=== PATIENT | female | born 1990 | race Caucasian/White ===

== ENCOUNTER 2020-02-11 09:32 | Outpatient (RCR) | payer BC, SELFPAY ==
[2020-02-11 10:19] VITALS: BP 112/76; PULSE 76
== END 2020-02-15 09:52 | disposition home or self-care (01) ==
LOC: ANHOBOP 09:32
PROVIDERS: Family Provider Obstetrics & Gynecology; PCP Obstetrics & Gynecology; Visit Provider Obstetrics & Gynecology
DX: O26.893 Other specified pregnancy related conditions, third trimester (principal); Z3A.39 39 weeks gestation of pregnancy
CPT/HCPCS: 59025

== ENCOUNTER 2020-02-12 19:04 | Inpatient (IN) | payer BC, SELFPAY ==
[2020-02-12] VITALS (10 sets, daily range): BP systolic 102–120; BP diastolic 59–71; PULSE 79–94; TEMP 36.8; BMI 33.3
[2020-02-12 19:40] LABS: Basophils Percent Auto 0.1 % (0.2-1.2); Eosinophils Percent Auto 0.2 % (0-4.4); Hematocrit 36.6 % (37.0-47.0); Hemoglobin 13.1 g/dL (12.0-15.0); Immature Granulocyte Absolute 0.03 K/mm3 (0.00-0.031); Immature Granulocyte Percent A 0.4 % (0-0.5); Lymphocytes Absolute Auto 1.87 K/mm3 (0.9-3.2); Lymphocytes Percent Auto 22.3 % (18.3-44.2); Mean Corpuscular HGB Conc 35.8 g/dl (32-36); Mean Corpuscular Hemoglobin 32.6 pg (26-34); Mean Platelet Volume 9.7 fl (7.4-10.4); Monocytes Absolute Auto 0.5 K/mm3 (0.1-0.6); Monocytes Percent Auto 6.1 % (2.6-8.5); Neutrophils Absolute Auto 5.9 K/mm3 (1.3-6.7); Neutrophils Percent Auto 70.9 % (45.5-73.1); Platelet Count Result 203 k/mm3 (150-375); Red Blood Count 4.02 M/mm3 (4.2-5.4); Red Cell Distribution Width 12.8 % (11.5-14.5); White Blood Count 8.4 K/mm3 (4.5-10.0)
--- NOTE | 2020-02-12 19:48 | LDADM ---
This patient, Trang Sutherland, was admitted to Labor/Delivery/Recovery 107 on 02/12/20 at 19:04. Plans for labor, pain management and were discussed with patient. Patient/family oriented to hospital policies and general routines including ID bracelet, bed and alarms, visiting hours, pain management, procedures, bathroom and other care routines, personal items, smoking policy, room service/diet and guest tray routines, infant security routines, and visiting hours. Patient/Family are encouraged to report perceived risks to care and to ask questions if they do not understand what they are told or what they should do. See OBIX for further documentation.
[2020-02-12] MEDS: DINOPROSTONE 10 MG VAG INSERT VAGINAL (20:00)
[2020-02-12] MEDS: LACTATED RINGERS 1,000 ML 125 ML IV CONT (21:34)
[2020-02-12] MEDS: CLINDAMYCIN 900 MG/NS 50 ML 900 MG/50 ML PIGGYBACK 50 MG IVPB (21:35)
[2020-02-13] VITALS (61 sets, daily range): BP systolic 87–160; BP diastolic 17–94; PULSE 61–115; RESP 18; TEMP 36.2–37.6; O2SAT 99–100
--- NOTE | 2020-02-13 02:15 | WPDANESEPP ---
Anes - Eval Pre Procedure Procedure: labor epidural Date/Time: 02/13/20 02:15 Surgeon: heaven Pre Op Diagnosis: IOL Patient Data Age: 29 Gender: F Height: 1.63 m Weight: 88 kg Last Vital Signs Temp 36.8 C 02/12/20 20:00 Pulse 79 02/12/20 22:01 BP 102/63 02/12/20 22:01 Allergies Allergy/AdvReac Type Severity Reaction Status Date / Time Penicillins Allergy Mild Rash Verified 02/06/20 15:38 amoxicillin Allergy Rash Verified 02/06/20 15:38 Home Medications Medication Instructions Recorded Confirmed Type PNV cmb#95-ferrous fumarate-FA 1 tablet PO DAILY 02/06/20 02/06/20 History [] folic acid 4 mg PO DAILY 02/06/20 02/06/20 History Laboratory Tests 02/12/20 02/12/20 02/12/20 19:32 19:32 19:32 WBC 8.4 K/mm3 K/mm3 (4.5-10.0) RBC 4.02 M/mm3 L M/mm3 (4.2-5.4) Hgb 13.1 g/dL g/dL (12.0-15.0) Hct 36.6 % L % (37.0-47.0) MCV 91.0 fl fl (80-100) MCH 32.6 pg pg (26-34) MCHC 35.8 g/dl g/dl (32-36) RDW 12.8 % % (11.5-14.5) Plt Count 203 k/mm3 k/mm3 (150-375) MPV 9.7 fl fl (7.4-10.4) Immature Gran % (Auto) 0.4 % % (0-0.5) Neut % (Auto) 70.9 % % (45.5-73.1) Lymph % (Auto) 22.3 % % (18.3-44.2) [place] % (Auto) 6.1 % % (2.6-8.5) Eos % (Auto) 0.2 % % (0-4.4) Baso % (Auto) 0.1 % L % (0.2-1.2) Lymph # (Auto) 1.87 K/mm3 K/mm3 (0.9-3.2) [place] # (Auto) 0.5 K/mm3 K/mm3 (0.1-0.6) Eos # (Auto) 0.0 K/mm3 K/mm3 (0-0.3) Baso # (Auto) 0.0 K/mm3 K/mm3 (0.0-0.1) Abs Immat Gran (auto) 0.03 K/mm3 K/mm3 (0.00-0.031) Absolute Neuts (auto) 5.9 K/mm3 K/mm3 (1.3-6.7) Absolute Nucleated RBC 0.0 K/mm3 K/mm3 (0.0-0.012) Nucleated RBC % 0.0 % % (0.0-0.2) RPR Pending Blood Type B Positive Antibody Screen Negative Patient hx anesthesia problems: none Family hx anesthesia problems: none [facility] Family History Family History (Updated 02/06/20 @ 15:43 by Kristin Aragon RN) Father Diabetes mellitus Stented coronary artery Mother Colon cancer Congestive heart failure Social History Social History Smoking status: Never smoker Substance use: never Spiritual care concerns: No Exam Day of Procedure 02/13/20 02:15
[2020-02-13] MEDS: CLINDAMYCIN 900 MG/NS 50 ML 900 MG/50 ML PIGGYBACK 50 MG IVPB ×2 (05:05→13:40)
[2020-02-13] MEDS: OXYTOCIN 30 UNITS/NS 500 ML 30 UNITS/500 ML BAG IV CONT (05:30)
[2020-02-13] MEDS: LACTATED RINGERS 1,000 ML 125 ML IV CONT ×2 (10:50→13:02)
--- NOTE | 2020-02-13 16:21 | WPDHPUPDATE1 ---
History and Physical Update Update Date/Time: 02/13/20 16:21 History and Physical has been reviewed, including an updated exam of the patient. There are NO changes in the patient's condition. Risks, benefits, and alternatives have been discussed and questions answered. Patient agrees to proceed with procedure.
--- NOTE | 2020-02-13 16:21 | WPDOBADMIT ---
Obstetrics - Admit Note Admission Note: record reviewed. No pertinent additions to the history and/or any subsequent changes in the physical findings that are not consistent with the expected course of the were found. Additions to the history and/or subsequent changes in the physical findings follow. None.
--- NOTE | 2020-02-13 16:21 | PM.OBPRVD ---
OB - Delivery Note Procedure Route of delivery: Episiotomy description: None Laceration description: None Specimen: No Estimated blood loss (mL): 300 Anesthesia type: Epidural Disposition: floor Narrative: Patient prepped and draped in usual manner this procedure. Maternal expulsive efforts readily delivered vertex which was followed by the rest of the baby without difficulty. Placenta delivered spontaneously and was intact. Cervix vagina vulva were inspected no lacerations or tears. Uterus well contracted and no significant bleeding. This point procedure was considered terminated. Baby Weeks of gestation at delivery: 39 Infant gender: Female Weight (pounds): 7 Weight (ounces): 11 score one minute: 8 score five minutes: 9
[2020-02-13] MEDS: OXYTOCIN 30 UNITS/NS 500 ML 30 UNITS/500 ML BAG 125 UNITS IV CONT (16:45)
--- NOTE | 2020-02-13 19:25 | PC.NURSE ---
To social service...pt and significant other have pleaded guilty to of 2 wk old baby and probation/time served. Have other children and seem as a functioning couple with plans and dreams.
[2020-02-13] MEDS: IBUPROFEN 600 MG TABLET PO (19:45)
[2020-02-13] MEDS: BENZOCAINE 20% AER SPR (*SP) 56 GM CAN 1 SPRAY TOPICAL (19:52)
--- NOTE | 2020-02-13 20:25 | OBPPTRN ---
February 13, 2020 at 1936 Patient transferred to post room #286 via wheelchair. Support person present. Oriented to unit, room, information board, rooming in, admission packet and security measures. Patient verbalizes understanding. Patient OOB and to the bathroom and tolerated activity very well.
[2020-02-14 04:29] LABS: Hematocrit 35.1 % (37.0-47.0); Hemoglobin 12.3 g/dL (12.0-15.0)
[2020-02-14 07:38] VITALS: BP 92/63; PULSE 70; RESP 18; TEMP 36.3
[2020-02-14] MEDS: MULTIVIT/MIN/PREN/FOL AC/IRON TABLET 1 TAB PO (09:37)
[2020-02-14] MEDS: FOLIC ACID 1 MG TABLET 4 MG PO (09:37)
[2020-02-14] MEDS: DOCUSATE SODIUM 100 MG CAPSULE PO (09:37)
[2020-02-14] MEDS: IBUPROFEN 600 MG TABLET PO (09:38)
--- NOTE | 2020-02-14 12:37 | PM.OBDSVD ---
OB - DS: Summary OB Procedures : None OB Procedures Intrapartum: Spontaneous Vag Delivery OB Procedures: : None Time Spent with Patient Time attestation: Total time spent providing and/or coordinating discharge services: DS: Data Data Completed and Pending Labs on day of discharge: Labs from last 24 hours 02/14/20 04:17 Hgb 12.3 Hct 35.1 L Discharge Plan Discharge Discharging Clinician: Galileo Nelson Patient Disposition: Home, Self-Care Activity: as tolerated Diet: as tolerated Patient Instructions: Antibiotic Form Stand Alone Forms: General Discharge Information Follow-up/Referrals: Galileo Nelson MD [Physician] - 3 Weeks Discharge Medications: Continued folic acid 1 mg Tablet 4 mg PO DAILY RF: 0 PNV cmb#95-ferrous fumarate-FA [] 28 mg iron- 800 mcg Tablet 1 tablet PO DAILY RF: 0 Date of admission: 02/12/20 19:04 Primary Care Provider: EriMely Admitting Provider: Galileo Nelson Attending physician on admission: Galileo Nelson
--- NOTE | 2020-02-14 15:01 | PCCCNOTE ---
Care Coordination Note Met with pt. who reports she lives at home with SANDY Gibbs. Pt. has two other children at home, boy and girl. Pt. reports she has had one child who . Pt. does report both her and Sai were charged and held responsible for child's . Pt. reports currently she does not have any DCFS involvement. Pt. reports she has custody of her two other children who are currently at home with Sai. Pt. reports she has supports including her family. Has everything including a crib, clothing, car seat, diapers, and formula. Pt. is hopeful to breastfeed. Pt. was provided a list of resources including counseling and WIC. Pt. states she is thinking about applying for WIC at discharge. Pt. denies any further needs.
--- NOTE | 2020-02-14 16:55 | WPDANLDPN2 ---
Anes-Prog Note L&D Date/Time: 02/14/20 16:55 Comfortable throughout: labor and delivery Neuraxial method: epidural Epidural/Spinal procedure site: clean & non-tender Neuro status: Neuro function grossly intact. Cardiovascular status: normal Respiratory status: normal Airway patency: baseline Mental status: baseline Post-Op hydration status: normal Vital Signs: Last Vital Signs Temp 97.4 F L 02/14/20 07:38 Pulse 70 02/14/20 07:38 Resp 18 02/14/20 07:38 BP 92/63 L 02/14/20 07:38 Pulse Ox 100 02/13/20 20:05 Post-procedural complaints: none Patient feedback: Patient satisfied with anesthetic care.
[2020-02-14 18:35] VITALS: BP 97/64; PULSE 72; RESP 12; TEMP 36.3
[2020-02-15 07:07] LABS: Rapid Plasma Reagin Non-Reactive (NonReactive)
[2020-02-15 08:20] VITALS: BP 104/66; PULSE 63; RESP 18; TEMP 37.3; O2SAT 100
[2020-02-15] MEDS: MULTIVIT/MIN/PREN/FOL AC/IRON TABLET 1 TAB PO (09:08)
--- NOTE | 2020-02-15 09:15 | PC.NURSE ---
Patient viewed the discharge video Mother & Baby Care, The First Two Weeks . Patient was given the opportunity and encouraged to ask questions. Patient verbalized understanding of information shared and has been given the mother/baby guide for home reference.
--- NOTE | 2020-02-15 10:45 | PC.NURSE ---
Consulted with patient, mother reports infant is nursing with the nipple shield, is sleepy and not vigorously nursing. Mother will pump and supplement each feeding. Mother used nipple shield with previous children due to inverted nipple. Mother reports she has been pumping and bottle feeding the last several feedings due to sore nipples and pain with feeding. Discussed nipple shield precautions and possible complications. Instructions given on application and cleaning of shield. Patient able to return demonstration on proper application of shield. Discussed the need for regular pumping pumping if infant continues to nurse with the shield. Once milk supply is established and infant is able to gain weight and supplementation is no longer needed mother may discontinue pumping. Patient verbalizes understanding. Nipple care reviewed. Mother is feeding as required and states she may continue to pump and bottle feed. Infant is currently meeting outcomes for weight, output, jaundice and feeding frequencies. Mother states she feels confident to continue current feeding plan at home. Mother states she will call for assist if she returns infant to breast for feedings and/or if she has discomfort with feedings. Reviewed transition to breast milk, signs of adequate intake, and engorgement/relief. Instructed to call ICP if intake/output less than required. Reviewed regular medications mother is taking. Information provided per Veronica. Reviewed community resources on the [facility] website and in the Mom/Baby guide. Information on outpatient services provided. Mother has no further questions at this time.
[2020-02-15] MEDS: FOLIC ACID 1 MG TABLET 4 MG PO (10:55)
[2020-02-17 11:32] VITALS: BP 108/61; PULSE 79; RESP 20; TEMP 36.9; O2SAT 100
--- NOTE | 2020-02-26 08:20 | PM.OBDSVD ---
DS: Admitting Diagnosis Admitting Diagnosis Admitting Diagnosis: Encounter for supervision of normal , unspecified, third trimester OB - DS: Summary OB Procedures : None OB Procedures Intrapartum: Spontaneous Vag Delivery OB Procedures: : None Time Spent with Patient Time attestation: Total time spent providing and/or coordinating discharge services: Discharge Plan Discharge Discharging Clinician: Galileo Nelson Patient Disposition: Home, Self-Care Activity: as tolerated Diet: as tolerated Discharge Instructions: Education: Mom and Baby and preeclampsia handout Guide Given to: Mother Follow-Up: Call your delivering provider's office for an appointment to be seen in: 3 weeks Mom and baby should come to the [facility] for the follow-up appointment. Appointment Date/Time: February 17, 2020 at 11:00 am What to expect at your follow-up visit: Physical Assessment Call [phone] if you are unable to keep your appointment time. BREAST CARE: 1. Wear a snug supportive bra. 2. For engorgement discomfort: Breast Feeding: A. Apply warm moist washcloths B. Express milk as needed to relieve engorgement C. Wear loose clothing 3. For sore nipples: A. Identify correct latch-on B. Apply warm moist washcloths before and after nursing C. Air dry nipples after nursing D. May apply Lansinoh cream to nipples EPISIOTOMY/PERINEAL CARE: 1. Until bleeding stops, use your salvador bottle after urinating 2. Change your pad frequently throughout the day 3. You may take sitz baths several times a day (fill your bathtub with warm water and soak for 20 minutes.) Do NOT bathe in the water 4. No tub baths until seen by your physician - You may shower ACTIVITY: 1. Rest as much as possible. 2. Do not exercise or lift anything heavier than your baby (such as laundry or other children.) 3. Avoid stairs or driving as much as possible. 4. Do not put anything into the vagina. No douching, tampons, or sexual activity until seen by physician. NOTIFY PHYSICIAN IF YOU HAVE ANY QUESTIONS OR IF ANY OF THE FOLLOWING SYMPTOMS OCCUR: 1. If your perineum becomes red, swollen, or more painful than what you have experienced in the hospital. 2. If your vaginal bleeding becomes foul smelling. 3. If your vaginal bleeding becomes more heavy than a period or if your bleeding changes from pink to bright red. However, you may pass an occasional walnut-sized clot once or twice for the first week . 4. If you experience a sharp, shooting pain in you calves. 5. If you discover a hard, reddened area on your breast or if you experience flu-like symptoms. DIET: 1. Eat regular, well-balanced meals. 2. Drink plenty of fluids daily. If , drink to thirst. Stand Alone Forms: General Discharge Information Follow-up/Referrals: Galileo Nelson MD [Physician] - 3 Weeks Discharge Medications: Continued folic acid 1 mg Tablet 4 mg PO DAILY RF: 0 PNV cmb#95-ferrous fumarate-FA [] 28 mg iron- 800 mcg Tablet 1 tablet PO DAILY RF: 0 Date of admission: 02/12/20 19:04 Primary Care Provider: RebeccaMely Admitting Provider: Galileo Nelson Discharge Date/Time: 02/15/20 13:21 Attending physician on admission: Galileo Nelson
== END 2020-02-15 13:21 | disposition home or self-care (01) | DRG 560 ==
LOC: ANHLDR 19:09 → ANHOB2 02-13 20:09
PROVIDERS: Admitting Provider Obstetrics & Gynecology; PCP Physician Assistant; Visit Provider Obstetrics & Gynecology
DX: O99.824 Streptococcus B carrier state complicating childbirth (principal); Z37.0 Single live birth; Z3A.39 39 weeks gestation of pregnancy
CPT/HCPCS: 36415; 85014; 85018; 85025; 86592; 86850; 86900; 86901; A9270; J2590; J2795; J7120

== ENCOUNTER 2022-04-01 19:59 | Emergency (ER) | payer BC, SELFPAY ==
--- NOTE | ~2022-04-01 | CT_ITS ---
EXAMINATION: CT abdomen pelvis w con DATE: 04/01/2022 21:51 INDICATION: Lump above umbilicus after heavy lifting. Nausea and vomiting. TECHNIQUE: Computed tomography (CT) of the abdomen and pelvis was performed with 100 CC Omnipaque 350 intravenous contrast. Automated exposure control and iterative reconstruction technique were employe d. Exam dose: 215.23 mGy-cm total exam DLP. COMPARISON: None. FINDINGS: The lung bases are clear. Normal heart size. No pericardial or pleural effusion. The liver, gallbladder, bile ducts, pancreas, pancreatic duct are unremarkable. Normal stomach size. Splenic calcified granulomas. Normal morphology of the adrenal glands. There is moderate scarring and volume loss of the upper and lower poles of the left kidney, likely du e to chronic pyelonephritis. No urinary tract calculus or hydroureteronephrosis. Urinary bladder is unremarkable. There is an IUD within the uterus. Normal caliber of the abdominal aorta. No intraperitoneal or retroperitoneal or pelvic mass lesion or adenopathy or ascites. There is a prominent amount of fecal material within the colon. No bowel obstruction. No umbilical or ventral abdominal wall hernia is detected IMPRESSION: No umbilical or ventral abdominal wall hernia Chronic left pyelonephritis IUD within uterus Reviewed, dictated and finalized at [facility]. Reviewed, dictated and finalized at [facility].
[2022-04-01 20:01] VITALS: BP 155/85; PULSE 107; RESP 16; TEMP 36.8; O2SAT 100
--- NOTE | 2022-04-01 20:31 | ED.GENADULT ---
HPI - General Adult General Chief complaint: Unspecified Stated complaint: umbilical hernia Time Seen by Provider: 04/01/22 20:24 History of Present Illness HPI narrative: Patient 31-year-old female presents emergency department with chief complaint of abdominal pain. Patient reports that she was turning and felt a pop in her abdominal wall and noticed a small lump. Patient states that she has history of her rectus muscles being stretched from a previous and reports that she has a tender area. The patient states she is concerned that she has an umbilical hernia. The patient states that she also noticed that she has been bruising whenever she used a foam roller on her leg and is concerned that her platelet count may be low. Patient also reports that she was seen at [facility] earlier this week after she had had some suicidal ideation was In the hospital for several days and since discharge has had several episodes of panic attacks. The patient currently denies suicidal or homicidal ideation. Related Data Home Medications Medication Instructions Recorded Confirmed folic acid 1 mg tablet 4 mg PO DAILY 02/06/20 02/06/20 vit no.95-ferrous 1 tablet PO DAILY 02/06/20 02/06/20 fumarate 28 mg-folic acid 800 mcg tablet () Allergies Allergy/AdvReac Type Severity Reaction Status Date / Time Penicillins Allergy Mild Rash Verified 02/06/20 15:38 amoxicillin Allergy Rash Verified 02/06/20 15:38 Review of Systems Review of Systems: A 10 system review of systems was completed on the patient and is negative except for what is stated in the HPI. Nursing and ancillary documentation was reviewed. [facility] Family History Family History Father Diabetes mellitus Stented coronary artery Mother Colon cancer Congestive heart failure Social History Social History Smoking status: Never smoker Substance use: never Spiritual care concerns: No Exam Narrative: GENERAL: Well-appearing, well-nourished, and in no acute distress. HEAD: Normocephalic, atraumatic. EYES: PERRLA and EOMI. ENT: Nares clear, no rhinorrhea or epistaxis. Mucous membranes moist. NECK: Supple. CHEST: Clear to auscultation. No respiratory distress. HEART: Regular rate and rhythm. No murmur heard. Normal peripheral pulses. ABDOMEN: Soft, tenderness in the periumbilical region, nondistended, normal active bowel sounds. EXTREMITIES: Normal range of motion. No edema. SKIN: Warm, dry, no rash. NEURO: No focal deficits. Alert and oriented x3. PSYCH: Normal mood and affect. Course Course Emergency Course: CT scan of the abdomen pelvis showed no evidence of acute intra-abdominal pathology no evidence of incarcerated hernia. Patient is medically cleared for psychiatric evaluation referral and admission and transport. Vital Signs Vital signs: Vital Signs Temperature 36.8 C 04/01/22 20:01 Pulse Rate 107 H 04/01/22 20:01 Respiratory Rate 16 04/01/22 20:01 Blood Pressure 155/85 H 04/01/22 20:01 Pulse Oximetry 100 04/01/22 20:01 Oxygen Delivery Room Air 04/01/22 20:01 Temperature 36.8 C 04/01/22 20:01 Pulse Rate 107 H 04/01/22 20:01 Respiratory Rate 16 04/01/22 20:01 Blood Pressure 155/85 H 04/01/22 20:01 Pulse Oximetry 100 04/01/22 20:01 Oxygen Delivery Room Air 04/01/22 20:01 Medical Decision Making Vital Signs Vital Signs: Vital Signs Temperature 36.8 C 04/01/22 20:01 Pulse Rate 107 H 04/01/22 20:01 Respiratory Rate 16 04/01/22 20:01 Blood Pressure 155/85 H 04/01/22 20:01 Pulse Oximetry 100 04/01/22 20:01 Oxygen Delivery Room Air 04/01/22 20:01 Temperature 36.8 C 04/01/22 20:01 Pulse Rate 107 H 04/01/22 20:01 Respiratory Rate 16 04/01/22 20:01 Blood Pressure 155/85 H 04/01/22 20:01 Pulse Oximetry 100 04/01/22 20:01 O
[2022-04-01 20:59] LABS: Basophils Percent Auto 0.6 % (0.2-1.2); Eosinophils Absolute Auto 0.1 K/mm3 (0-0.3); Eosinophils Percent Auto 1.9 % (0-4.4); Hematocrit 34.7 % (37.0-47.0); Hemoglobin 11.7 g/dL (12.0-15.0); Immature Granulocyte Absolute 0.01 K/mm3 (0.00-0.031); Immature Granulocyte Percent A 0.2 % (0-0.5); Lymphocytes Absolute Auto 2.45 K/mm3 (0.9-3.2); Lymphocytes Percent Auto 38.7 % (18.3-44.2); Mean Corpuscular HGB Conc 33.7 g/dl (32-36); Mean Corpuscular Hemoglobin 31.2 pg (26-34); Mean Corpuscular Volume 92.5 fl (80-100); Mean Platelet Volume 8.8 fl (7.4-10.4); Monocytes Absolute Auto 0.5 K/mm3 (0.1-0.6); Monocytes Percent Auto 7.6 % (2.6-8.5); Neutrophils Absolute Auto 3.2 K/mm3 (1.3-6.7); Platelet Count Result 258 k/mm3 (150-375); Red Blood Count 3.75 M/mm3 (4.2-5.4); Red Cell Distribution Width 12.9 % (11.5-14.5); White Blood Count 6.3 K/mm3 (4.5-10.0)
[2022-04-01 21:09] LABS: Acetaminophen < 10 ug/mL (10-30); Ethanol < 10 mg/dL (<10); Salicylate < 1.0 mg/dL (2-20)
[2022-04-01 21:10] LABS: Alanine Aminotransferase 17 U/L (6-35); Albumin Level 3.8 g/dL (3.5-5.1); Alkaline Phosphatase 38 U/L (38-126); Anion Gap 9 mmol/L (8-16); Aspartate Amino Transferase 25 U/L (14-36); Bilirubin,Total 0.3 mg/dL (0.2-1.3); Blood Urea Nitrogen 18 mg/dL (7-17); Calcium 8.1 mg/dL (8.4-10.2); Carbon Dioxide 25 mmol/L (22-30); Chloride 102 mmol/L (98-107); Estimated CRCL calculation 75 ml/min; Estimated Glomerular Filt Rate > 60; Glucose 83 mg/dL (65-110); Lipase 84 U/L (23-300); Potassium 3.7 mmol/L (3.4-5.0); Sodium 136 mmol/L (137-145)
[2022-04-01 21:12] LABS: Lactic Acid Reflex 0.8 mmol/L (0.7-2.0)
[2022-04-01 21:22] LABS: Appearance Urine Clear (Clear); Bilirubin Urine Negative (Negative); Blood Urine Negative (Negative); Color Urine Yellow (Yellow); Glucose Urine UA Negative (Negative); Ketones Urine Negative (Negative); Leukocyte Esterase Ur Negative LEU/UL (Negative); Nitrate Urine Negative (Negative); Protein Urine Negative (Negative); Specific Grav Ur 1.025 (1.001-1.035); pH Urine 6.5 (5.0-9.0)
[2022-04-01 21:28] LABS: Mucus Urine Rare /lpf; Squamous Epithelial Cell Urine Occasional /hpf (Few); WBC Urine 0-3 /hpf
[2022-04-01 21:34] LABS: Add Urine Microscopic? NO
[2022-04-01] MEDS: LORazepam INJ (*CRX) 2 MG/ML VIAL 1 MG IV PUSH (21:38)
--- NOTE | 2022-04-01 21:38 | PC.NURSE ---
Pt is in ED rm 15, Manual gave in the room due to safety precautions for si.
[2022-04-01 21:40] LABS: Amphetamine Screen Urine Negative (Negative); Barbiturate Screen Urine Negative (Negative); Benzodiazepines Screen Urine Negative (Negative); Cannabinoid Screen Urine Positive (Negative); Cocaine Screen Urine Negative (Negative); Methadone Screen Urine Negative (Negative); Opiate Screen Urine Negative (Negative); Phencyclidine Screen Urine Negative (Negative)
--- NOTE | 2022-04-01 22:51 | PC.NURSE ---
2243 - Contacted [facility] for crisis evaluated. Spoke with Dinah. Pt meets criteria for evaluation, ETA approx 2 hours from call.
--- NOTE | 2022-04-01 23:37 | PC.NURSE ---
Transferred care to DANGELO Mandujano
[2022-04-01 23:42] LABS: SARS-CoV-2 RNA PCR Negative
--- NOTE | 2022-04-02 02:05 | PC.NURSE ---
Pt had requested medications for anxiety, RN spoke with MD and new Rx sent to pharmacy. Pt also requesting labs, Registration set pt up to access [facility] portal with all labs available.
[2022-04-02 02:06] VITALS: PULSE 77; RESP 18; O2SAT 100
== END 2022-04-02 02:09 | disposition home or self-care (01) ==
PROVIDERS: Emergency Provider Emergency Medicine
DX: R10.84 Generalized abdominal pain (principal); Z20.822 Contact with and (suspected) exposure to COVID-19; F41.9 Anxiety disorder, unspecified; F32.A Depression, unspecified; R45.851 Suicidal ideations; Z97.5 Presence of (intrauterine) contraceptive device; N11.9 Chronic tubulo-interstitial nephritis, unspecified
CPT/HCPCS: 36415; 74177; 80053; 80307; 81003; 81025; 83605; 83690; 85025; 96374; 99284; C9803; J2060; Q9967; U0003; U0005

== ENCOUNTER 2024-11-08 19:54 | Emergency (ER) | payer BC, SELFPAY ==
--- NOTE | ~2024-11-08 | CT_ITS ---
CT facial bones w con Ordering provider: Joss Herzog PA-C History: . R sinus pain, fevers . Comparison: None. Technique: Thin slice axial CT of the facial bones was performed following the administration of intr avenous contrast. Coronal and sagittal reformatted images were also obtained. The dose-length produc t was 299.77 mGy-cm. FINDINGS: PARANASAL SINUSES: Trace mucoperiosteal thickening within the right maxillary sinus. Remaining parana vilma sinuses are unremarkable. BONES: No facial fracture including no nasal bone fracture. The nasal septum is deviated to the patie nt's left, with a prominent nasal spur. ORBITS AND SUPERFICIAL SOFT TISSUES: The optic globes and orbits are symmetric. The superficial soft tissues are unremarkable, without a rim-enhancing fluid collection. VISUALIZED MASTOIDS: Well aerated. LIMITED VISUALIZED BRAIN PARENCHYMA: Unremarkable. IMPRESSION: Trace mucoperiosteal thickening within the right maxillary sinus. Nasal septum deviation to the patient's left with a prominent nasal spur. No rim-enhancing fluid collection. Reviewed, dictated and finalized at location A.
[2024-11-08 19:56] VITALS: BP 122/63; PULSE 86; RESP 16; TEMP 36.8; O2SAT 98
--- OUTSIDE RECORDS SUMMARY | 2024-11-08 19:56 | XMS_ITS | Clinical Summary ---
Author Organization [facility] Address [address] [place] [id number] Care Team Providers Care Mattress Stripper Name Role Phone Clari Gandhi DIRECTOR OF SPECIAL EDUCATION-C Primary Care Provider Social History Tobacco Use Types Packs/Day Years Used Date Smoking Tobacco: Never Assessed Comments Unknown Sex and Gender Information Value Date Recorded Sex Assigned at Not on file Legal Sex Female 7:59 PM CDT Gender Identity Not on file Sexual Orientation Not on file Plan of Treatment Health Maintenance Due Date Last Done Comments Cervical Cancer Screening Pa p Smear (Age 30 to 64) Every 3 Years 1988 Annual Physical 10/23/1991 Hepatitis C 2006 DTaP, Tdap and Td Vaccines ( 1 - Tdap) 10/23/2007 Hepatitis B Vaccines (1 of 3 - 19+ 3-dose series) 10/23/2007 Cervical Cancer Screening Pa p with HPV Testing (Age 30 to 64) Every 5 Years 2018 Cervical Cancer Screening with HPV 2018 COVID-19 Vaccine (2023-2 5 season) 2024 HPV Vaccines Aged Out No longer eligi ble based on patient's age to complete this topic Meningococcal B Vaccine Aged Out No l onger eligible based on patient's age to complete this topic Meningococcal Vaccine Aged Out No gian sandra eligible based on patient's age to complete this topic Pneumococcal Vaccine: Pediat rics (0 to 5 Years) and At-Risk Patients (6 to 64 Years) Aged Out No longer eligible b ased on patient's age to complete this topic RSV Immunizations Under 20 Months Aged Out No longer eligible based on patient's age to complete this topic Care Teams Mattress Stripper Relationship Specialty Start Date End Date Clari Gandhi NP-C [address] [place] [id number] PCP - General 10/05/15
--- OUTSIDE RECORDS SUMMARY | 2024-11-08 19:56 | XMS_ITS | Clinical Summary ---
Author Organization [facility] Address [address] [place] [address] Care Team Providers Care Wool Sorter Name Role Phone Bello Raines MD Primary Care Provider [phone] Source Comments [facility],non-owned Affiliates and Associated Physician Practices is amultiple site organization consisting of ambulatory clinics and hospital sitesin [place], [place], [place] and [place]. This disclosure is being madepursuant to the Care Everywhere program and may not contain all information available regarding this patient. Last updated 18.[facility] Allergies Active Allergy Reactions Criticality Noted Date Comments Penicillins Rash Medium 05/21/2017 Medications * Be aware that medications may not be up to date on this document. Alwaysverify current medications with the patient. Medication Sig Dispensed Refills Start Date End Date Status Vit-Fe Fumarate-FA ( VITAMINS) 28-0.8 MG TABS Take 1 tablet by mouth once daily 100 tablet 4 05/21/2017 Active acetaminophen (TYLENOL) 325 MG tablet Take 650 mg by mouth every 4 hours as needed for Fever or Pain Maximum allowable Acetaminophen amount = 4 Grams (4000 mg) / 24 hours. Active docusate sodium (COLACE) 100 MG capsule Take 1 capsule by mouth 2 times daily as needed for Constipation 60 capsule 2 01/06/2018 Active ferrous sulfate 325 (65 FE) MG tablet Take 1 tablet by mouth daily with breakfast 30 tablet 2 01/06/2018 Active Active Problems Patient Care Coordination No te Formatting of this note migh t be different from the original. 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 Encounter for ultrasound 07/01/2017 Overview (09/02/2017): 1st look on 06/26/2017 Result: 1:6,300 for DS and 1:10,000 for Trisomy 18 2nd blood draw ideal dates: 07/25/17-08/08/17 Letter sent 07/01/2017 Final result: 1:10,000 for DS and 1:10,000 for Trisomy 18, Not Increased for ONTD LGSIL on Pap smear of cervix 06/13/2017 Overview (06/26/2017): 05/2017 pap with LGSIL 06/26/17--colpo done and changes visibility c/w mild changes Recommended f/u colpo at 6 wks Retained intrauterine device (IUD) during pregna ncy 05/21/2017 Overview (12/17/2017): Family history of congenital heart disorder in [place] MTHFR mutation Resolved Problems Problem Noted Date Diagnosed Date Resolved Date Pelvic pain affecting 10/08/2017 12/17/2017 Overview (10/08/2017): Pubic symphysis pain Subluxation of symphysis pub is during , antepartum 10/08/2017 12/17/2017 Overview (10/08/2017): Physical therapy Support belt information provided abnormality affecting management of mother 10/08/2017 12/17/2017 Overview (12/10/2017): Pyelectasis 5mm at 26wk, repeat ultrasound on 11/12> resolved Supervision of high-risk pre gnancy of young multigravida 05/21/2017 09/30/2019 Overview (12/10/2017): Datinwk +/I/-/-, NR CF neg Sequential screen Call Rafael for delivery Nausea/vomiting in 05/21/2017 12/10/2017 Overview (07/16/2017): Tried a limited course of B6 and doxylamine Using lowell prn Resolved as of 07/16/17 Immunizations Name Administration Dates Next Due INFLUENZA VACCINE, QUADR. (F LUZONE; FLULAVAL; FLUARIX; AFLURIA QUADRIVALENT; 6MO+), 0.5 ML (IIV4) 05/21/2017 TDAP (7yrs+) 10/08/2017 Family History Medical History Relation Name Comments Arthritis - Osteo Mother CAD (Coronary Artery Disease) Mother Multiple Births Mother DVT - Deep Vein Thrombosis Sister Diabetes - Type 2 Sister Relation Name Status Comments Mother Sister Social History Tobacco Use Types Packs/Day Years Used Date Smoking Tobacco: Former Cigarettes Smokeless Tobacco: Never Alcohol Use Standard Drinks/Week Comments No 0 (1 standard drink = 0.6 oz pur e alcohol) Sex and Gender Information Value Date Recorded Sex Assigned at Not on file Gender Identity Not on file Sexual Orientation Not on file Last Filed Vital Signs Vital Sign Reading Time Taken Comments Blood Pressure 114/63 01/06/2018 7:50 AM CDT Pulse 62 01/06/2018 7:50 AM CDT Temperature 37.2 C (99 F) 01/06/2018 7:50 AM CDT Respiratory Rate 18 01/06/2018 7:50 AM CDT Oxygen Saturation 100% 01/04/2018 11:15 PM CDT Inhaled Oxygen Concentration - - Weight 84.2 kg (185 lb 9.6 oz) 01/04/2018 1:54 A M CDT Height 162.6 cm (5' 4 ) 01/04/2018 1:54 AM CDT Body Mass Index 31.86 01/04/2018 1:54 AM CDT Plan of Treatment Health Maintenance Due Date Last Done Comments HEPATITIS C SCREENING 10/18/2006 HEPATITIS B VACCINE (1 of 3 - 19+ 3-dose series) 10/23/2007 PAP SMEAR 05/21/2020 05/21/2017 COVID-19 VACCINE (1 - 2023-2 5 season) 2024 DEPRESSION SCREENING 08/05/2024 INFLUENZA VACCINE (Season Ended) 2025 05/21/20 DTAP/TDAP/TD VACCINES (2 - T d or Tdap) 10/09/2027 10/08/2017 ZOSTER VACCINE (1 of 2) 2038 HIV SCREENING Completed 05/21/2017 HIB VACCINE Aged Out No longer eligi ble based on patient's age to complete this topic HPV VACCINE Aged Out No longer eligi ble based on patient's age to complete this topic MENINGOCOCCAL (Group B) VACC INE SHARED DECISION-MAKING Aged Out No longer eligibl e based on patient's age to complete this topic MENINGOCOCCAL GROUPS A/C/Y/W VACCINE Aged Out No longer eligible b ased on patient's age to complete this topic PNEUMOCOCCAL VACCINE Aged Out No long er eligible based on patient's age to complete this topic Procedures Procedure Name Priority Date/Time Associated Diagnosis Comments CULTURE STREP B Routine 12/10/2017 1:47 PM CDT Supervision of high-risk of young multigravida GLUCOSE CHALLENGE Routine 10/08/2017 3:4 4 PM FINISHING SUPERVISOR PLASTIC SHEETS Supervision of high-risk of young multigravida PAP LB RFLX HPV ASCU Routine 05/21/2017 4:19 PM CDT Supervision of high-risk of young multigravida HIV-1 HIV-2 ANTIBODY + HIV P24 AG PANEL Routine 05/21/2017 4:19 PM CDT Supervision of high-risk of young multigravida from Last 3 Months or Most Recently Relevant to Health Maintenance Results * CULTURE STREP B (12/10/2017 1:47 PM CDT) Pathologist [facility] Culture Strep B Negative for beta-hemolytic Streptococcus Group B MAYDA 12/13/2017 6:36 AM CDT [facility] Microbiology MISCELLANEOUS SAMPLES / Unknown Collection / Unknown 12/10/2017 1:47 PM CDT 12/10/2017 1:55 PM CDT Abiola Walden MD LAB - MICROBIOLOGY ORDERABLES [facility] [address] [place] [address], [facility] [phone] * GLUCOSE CHALLENGE (10/08/2017 3:44 PM FINISHING SUPERVISOR PLAST[employer] SHEETS) Glucose Challenge 107 64 - 140 mg/dL 10/08/2017 4:33 PM FINISHING SUPERVISOR PLASTIC SHEETS [facility] Glucose Challenge Time 10/08/2017 4:33 PM FINISHING SUPERVISOR PLASTIC SHEETS [facility] Blood BLOOD SPECIMEN / Unknown Venipuncture / Unknown 10/08/2017 3:44 PM FINISHING SUPERVISOR PLASTIC SHEETS 10/08/2017 4:01 PM FINISHING SUPERVISOR P[employer] SHEETS Abiola Walden MD LAB - CHEMISTRY ORD ERABLES Performing Organization Address City/[facility]/ZIP Co de Phone Number [facility] [address] [place] [address] * HIV-1 HIV-2 ANTIBODY + HIV P24 AG PANEL (05/21/2017 4:19 PM CDT) HIV1/2 Ab + P24 Ag Non Reactive Non Reactive 05/21/2017 10:27 PM CDT [facility] Blood BLOOD SPECIMEN / Unknown Venipuncture / Unknown 05/21/2017 4:19 PM CDT 05/21/2017 5:11 PM CDT Narrative [facility] - 05/21/2017 10:27 PM CDT No Laboratory evidence of HIV infection. Abiola Walden MD LAB - CHEMISTRY ORD ERABLES Performing Organization Address City/[facility] Co de Phone Number [facility] [address] [place] [address] * (ABNORMAL) PAP LB RFLX HPV ASCU (05/21/2017 4:19 PM CDT) Diagnosis Comment(A) 05/28/2017 3:18 PM CDT [facility] ([facility]) Comment: EPITHELIAL CELL ABNORMALITY. LOW-GRADE SQUAMOUS INTRAEPITHELIAL LESION (LGSIL); MILD DYSPLASIA IS PRESENT. Recommendation Comment(A) 05/28/2017 3:18 PM CDT [facility] ([facility]) Comment:Suggest follow up as clinically appropriate. Specimen Adequacy Comment 017 3:18 PM CDT [facility] ([facility]) Comment: Satisfactory for evaluation. Endocervical and/or squamous metaplastic cells (endocervical component) are present. Performed by Comment 05/28/2017 3:18 PM CDT [facility] ([facility]) Comment:Yvonne Fraser chnologist (ASCP) Electronically Signed by Comment 05/28/2017 3:18 PM CDT [facility] ([facility]) Comment:Keke Hatfield MD, Pathologist Comment . 05/28/2017 3:18 PM CDT [facility] ([facility]) Pathologist Provided ICD10 Comment 05/28/2017 3:18 PM CDT [facility] ([facility]) Comment:R87.612 Note Comment 05/28/2017 3:18 PM CDT [facility] ([facility]) Comment: The Pap smear is a screening test designed to aid in the detection of premalignant and malignant conditions of the uterine cervix. It is not a diagnostic procedure and should not be used as the sole means of detecting cervical cancer. Both false-positive and false-negative reports do occur. Note Comment 05/28/2017 3:18 PM CDT [facility] ([facility]) Comment: The HPV DNA reflex criteria were not met with this specimen result therefore, no HPV testing was performed. Pathology/Cytolo gy ENTIRE ENDOCERVIX / Unknown Collection / Unknown 05/21/2017 4:19 PM CDT 05/21/2017 5:13 PM CDT Narrative [facility] ([facility]) - 05/28/2017 3:18 PM CDT Performed at: [address] [place] [id number] Chemical Processor: Keke Hatfield MD, Phone: [phone] Specimen Comment: Source.............Endocervix Specimen Comment: No. of containers..01 ThinPrep Vial Abiola Walden MD LAB - PATHOLOGY/CYT OLOGY ORDERABLES [facility] ([facility]) [address] [place] [address] from Last 3 Months or Most Recently Relevant to Health Maintenance Advance Directives * Full Code (Latest Code Status on File) Date Activated Date Inactivated Comments 01/04/2018 3:11 AM 01/06/2018 4:28 PM * Full Code Date Activated Date Inactivated Comments 01/04/2018 2:13 AM 01/04/2018 3:11 AM Care Teams Wool Sorter Relationship Specialty Start Date End Date Bello Raines MD PCP - General 11/21/17
--- NOTE | 2024-11-08 20:41 | ED_ITS ---
HPI - General Adult General Chief complaint: Unspecified Stated complaint: fever, chills, fatigue, dental, facial swelling Time Seen by Provider: 11/08/24 20:12 Source: patient Mode of arrival: ambulatory Limitations: no limitations History of Present Illness HPI narrative: This is a 34-year-old female who presents to the ED for chief complaint of fevers and sinus pain ongoing for the past 2 days. Patient reports fever up to 100.2? F today. States that she has been very fatigued and generalized malaise. Endorses known abscess to the left lower molar. States that the dental surgeon is also removing the right upper and right lower posterior most molars as well. States that the sinus has been more painful over the past couple of days. Denies neck pain, headache or LOC. Denies nausea, vomiting, dysphagia or sore throat. States that she took a COVID flu test today which was negative. Related Data Home Medications ?Medication ?Instructions ?Recorded ?Confirmed ?Last Taken ?Type folic acid 1 mg tablet 4 mg PO DAILY 02/06/20 02/06/20 02/06/20 12:00 History vit no.95-ferrous 1 tablet PO DAILY 02/06/20 02/06/20 02/06/20 12:00 History fumarate 28 mg-folic acid 800 mcg tablet () Allergies Allergy/AdvReac Type Severity Reaction Status Date / Time Penicillins Allergy Mild Rash Verified 11/08/24 19:56 amoxicillin Allergy Rash Verified 11/08/24 19:56 Review of Systems 2 Review of Systems: All systems as dictated in [facility] Family History Family History Father Diabetes mellitus Stented coronary artery Mother Colon cancer Congestive heart failure Social History Social History Smoking status: Never smoker Substance use: never Substance use type: unknown Spiritual care concerns: No Exam 2 Narrative: GENERAL: Well-appearing, well-nourished, and in no acute distress. HEAD: Normocephalic, atraumatic. EYES: PERRLA and EOMI. ENT: Right maxillary sinus tenderness present. No significant facial swelling. Nares clear, no rhinorrhea or epistaxis. Mucous membranes moist. Oropharynx without tonsillar hypertrophy exudate or other lesions. Floor of the mouth intact. No dysphagia. Normal phonation. No trismus or drooling. NECK: Supple. No adenopathy or masses. CHEST: No respiratory distress. Clear to auscultation. No wheezes rales or rhonchi HEART: Regular rate and rhythm. No murmur heard. Normal peripheral pulses. ABDOMEN: Soft, nontender, nondistended, normal active bowel sounds. MSK: Normal range of motion. No edema. SKIN: Warm, dry, no rash. NEURO: Alert and oriented x4. No focal deficits. PSYCH: Normal mood and affect. Course Reevaluation(s) Reevaluation #1: Patient is feeling much improved after Toradol. Date: 11/08/24 Time: 22:21 Vital Signs Vital signs: Vital Signs Temperature 98.2 F 11/08/24 19:56 Pulse Rate 86 11/08/24 19:56 Respiratory Rate 16 11/08/24 19:56 Blood Pressure 122/63 11/08/24 19:56 Pulse Oximetry 98 11/08/24 19:56 Oxygen Delivery Room Air 11/08/24 19:56 Temperature 98.2 F 11/08/24 19:56 Pulse Rate 86 11/08/24 19:56 Respiratory Rate 16 11/08/24 19:56 Blood Pressure 122/63 11/08/24 19:56 Pulse Oximetry 98 11/08/24 19:56 Oxygen Delivery Room Air 11/08/24 19:56 Medical Decision Making [facility] Narrative Medical decision making narrative: This is a 34-year-old female who presents to the ED for chief complaint of fevers, fatigue and sinus pressure on the right side. Vitals are normal. Exam does show tenderness to the right maxillary sinus. Lab work showing normal white count on CBC. CMP unremarkable. Facial CT showing sinusitis but no deep space infection or abscess. Patient will be placed on doxycycline for sinusitis. Patient will be discharged in stable condition. Supportive measures discussed and return precautions given. Patient is understanding and agreeable with plan for discharge with PCP follow-up. Vital Signs Vital Signs: Vital Signs Temperature 98.2 F 11/08/24 19:56 Pulse Rate 86 11/08/24 19:56 Respiratory Rate 16 11/08/24 19:56 Blood Pressure 122/63 11/08/24 19:56 Pulse Oximetry 98 11/08/24 19:56 Oxygen Delivery Room Air 11/08/24 19:56 Temperature 98.2 F 11/08/24 19:56 Pulse Rate 86 11/08/24 19:56 Respiratory Rate 16 11/08/24 19:56 Blood Pressure 122/63 11/08/24 19:56 Pulse Oximetry 98 11/08/24 19:56 Oxygen Delivery Room Air 11/08/24 19:56 Lab Data 11/08/24 20:45 11/08/24 20:45 Labs: Lab Results 11/08/24 Range/Units 20:45 WBC 6.9 (4.5-10.0) K/mm3 RBC 4.21 (4.2-5.4) M/mm3 Hgb 12.8 (12.0-15.0) g/dL Hct 37.1 (37.0-47.0) % MCV 88.1 (80-100) fl MCH 30.4 (26-34) pg MCHC 34.5 (32-36) g/dl RDW 12.2 (11.5-14.5) % Plt Count 219 (150-375) k/mm3 MPV 9.2 (7.4-10.4) fl Immature Gran % (Auto) 0.3 (0-0.5) % Neut % (Auto) 73.6 H (45.5-73.1) % Lymph % (Auto) 15.9 L (18.3-44.2) % [place] % (Auto) 7.8 (2.6-8.5) % Eos % (Auto) 2.0 (0-4.4) % Baso % (Auto) 0.4 (0.2-1.2) % Lymph # (Auto) 1.10 (0.9-3.2) K/mm3 [place] # (Auto) 0.5 (0.1-0.6) K/mm3 Eos # (Auto) 0.1 (0-0.3) K/mm3 Baso # (Auto) 0.0 (0.0-0.1) K/mm3 Abs Immat Gran (auto) 0.02 (0.00-0.031) K/mm3 Absolute Neuts (auto) 5.1 (1.3-6.7) K/mm3 Absolute Nucleated RBC 0.000 (0.0-0.012) K/mm3 Nucleated RBC % 0.0 (0.0-0.2) % Sodium 135 L (137-145) mmol/L Potassium 3.4 (3.4-5.0) mmol/L Chloride 102 (98-107) mmol/L Carbon Dioxide 23 (22-30) mmol/L Anion Gap 10 (4-12) mmol/L BUN 13 D (7-17) mg/dL Creatinine 0.94 (0.7-1.0) mg/dL Estim Creat Clear Calc 75 ml/min Estimated GFR > 60 (59 - ) Glucose 91 (65-110) mg/dL Calcium 8.9 (8.4-10.2) mg/dL Total Bilirubin 0.6 (0.2-1.3) mg/dL AST 20 (14-36) U/L ALT 17 (6-35) U/L Alkaline Phosphatase 45 (38-126) U/L Total Protein 7.0 (6.3-8.2) g/dL Albumin 4.2 (3.5-5.1) g/dL Discharge Plan Discharge Clinical Impression: Sinusitis Patient Disposition: Home, Self-Care Condition: Stable Instructions: Antibiotic Form Additional Instructions: Exam and imaging today do show evidence of inflammation of the sinuses. We will prescribe Flonase as well as doxycycline. Please follow-up closely with dental surgeon as scheduled. If you have any new or worsening symptoms please return to the ER for further evaluation. Patient Language: Syrian Prescriptions: New doxycycline hyclate 100 mg capsule 100 mg PO BID 7 Days Qty: 14 0RF fluticasone propionate [Flonase Allergy Relief] 50 mcg/actuation spray,suspension 2 spray intranasal DAILY Qty: 16 0RF Rx Instructions: administer into each nostril No Action folic acid 1 mg Tablet 4 mg PO DAILY PNV cmb#95-ferrous fumarate-FA [] 28 mg iron- 800 mcg Tablet 1 tablet PO DAILY hydroxyzine pamoate [Vistaril] 25 mg capsule 25 mg PO TID PRN (Reason: anxiety) Qty: 30 0RF Follow-up/Referrals: Aliyah,MARION Werner [Primary Care Provider] - Stand Alone Forms: Work/School Release IP Time of Disposition: 22:12
[2024-11-08] MEDS: KETOROLAC 30 MG/ML VIAL (*BKC) IV PUSH (20:50)
[2024-11-08 21:12] LABS: Basophils Percent Auto 0.4 % (0.2-1.2); Eosinophils Absolute Auto 0.1 K/mm3 (0-0.3); Hematocrit 37.1 % (37.0-47.0); Hemoglobin 12.8 g/dL (12.0-15.0); Immature Granulocyte Absolute 0.02 K/mm3 (0.00-0.031); Immature Granulocyte Percent A 0.3 % (0-0.5); Lymphocytes Percent Auto 15.9 % (18.3-44.2); Mean Corpuscular HGB Conc 34.5 g/dl (32-36); Mean Corpuscular Hemoglobin 30.4 pg (26-34); Mean Corpuscular Volume 88.1 fl (80-100); Mean Platelet Volume 9.2 fl (7.4-10.4); Monocytes Absolute Auto 0.5 K/mm3 (0.1-0.6); Monocytes Percent Auto 7.8 % (2.6-8.5); Neutrophils Absolute Auto 5.1 K/mm3 (1.3-6.7); Neutrophils Percent Auto 73.6 % (45.5-73.1); Platelet Count Result 219 k/mm3 (150-375); Red Blood Count 4.21 M/mm3 (4.2-5.4); Red Cell Distribution Width 12.2 % (11.5-14.5); White Blood Count 6.9 K/mm3 (4.5-10.0)
[2024-11-08 21:22] LABS: Alanine Aminotransferase 17 U/L (6-35); Albumin Level 4.2 g/dL (3.5-5.1); Alkaline Phosphatase 45 U/L (38-126); Anion Gap 10 mmol/L (4-12); Aspartate Amino Transferase 20 U/L (14-36); Bilirubin,Total 0.6 mg/dL (0.2-1.3); Blood Urea Nitrogen 13 mg/dL (7-17); Calcium 8.9 mg/dL (8.4-10.2); Carbon Dioxide 23 mmol/L (22-30); Chloride 102 mmol/L (98-107); Estimated CRCL calculation 75 ml/min; Estimated Glomerular Filt Rate > 60; Glucose 91 mg/dL (65-110); Potassium 3.4 mmol/L (3.4-5.0); Sodium 135 mmol/L (137-145)
[2024-11-08 22:35] VITALS: BP 103/67; PULSE 72; RESP 20; TEMP 36.7; O2SAT 98
== END 2024-11-08 22:35 | disposition home or self-care (01) ==
PROVIDERS: Emergency Provider Physician Assistant; PCP Physician Assistant
DX: J01.00 Acute maxillary sinusitis, unspecified (principal)
CPT/HCPCS: 36415; 70487; 80053; 85025; 96374; 99284; J1885; Q9967